=== PATIENT | male | born 1965 | race Two or more races ===

== ENCOUNTER 2024-10-11 09:59 | Emergency (ER) | payer MEDICAID ==
[~2024-10-11] VITALS: Ht 165.1 cm; Wt 97.5 kg
[2024-10-11 10:08] VITALS: BP 167/100; TEMP 98.2
[2024-10-11] MEDS ORDERED: LIDOCAINE 2% 20 ML MDV ONE (10:37)
[2024-10-11 11:11] VITALS: O2SAT 98
== END 2024-10-11 11:27 | disposition home or self-care (01) ==
LOC: ER 10:04
DX: S61.211A Laceration without foreign body of left index finger without damage to nail, initial encounter (principal); I10 Essential (primary) hypertension; W26.0XXA Contact with knife, initial encounter; Y93.9 Activity, unspecified; Y92.89 Other specified places as the place of occurrence of the external cause; Y99.8 Other external cause status
CPT/HCPCS: 12002; 99283; J3490

== ENCOUNTER 2024-10-24 09:22 | Emergency (ER) | payer MEDICAID ==
[~2024-10-24] VITALS: Ht 165.1 cm; Wt 97.5 kg
[2024-10-24 09:27] VITALS: BP 126/69; TEMP 97.9
[2024-10-24 10:13] VITALS: O2SAT 99
== END 2024-10-24 10:14 | disposition home or self-care (01) ==
LOC: ER 09:26
DX: S61.211D Laceration without foreign body of left index finger without damage to nail, subsequent encounter (principal); X58.XXXD Exposure to other specified factors, subsequent encounter; I10 Essential (primary) hypertension; Z48.02 Encounter for removal of sutures